=== PATIENT | female | born 1945 | race Caucasian/White ===

== ENCOUNTER → 2018-02-16 | Outpatient (CLI) | payer MEDICARE, OTHER | END | disposition home or self-care (01) | LOC: PCVCCLINIC 15:51 | PROVIDERS: ATTEND Internal Medicine Cardiovascular Disease | DX: I10 Essential (primary) hypertension (principal); R06.00 Dyspnea, unspecified; R07.9 Chest pain, unspecified; E78.00 Pure hypercholesterolemia, unspecified; J45.909 Unspecified asthma, uncomplicated | CPT/HCPCS: 93005; G0463 ==

== ENCOUNTER → 2018-03-06 | Outpatient (CLI) | payer MEDICARE, OTHER ==
[~2018-03-06] MED LIST: REGADENOSON 0.4 MG/5 ML DISP.SYRIN. IV ONE
--- NOTE | 2018-03-06 15:19 | PCVCIMAG ---
APPROVED REPORT Study performed: 03/06/2018 11:30:20 EXAM: Comprehensive 2D, Doppler, and color-flow Echocardiogram Patient Location: Echo lab Status: routine BSA: 1.71 HR: 60 bpmBP: 128/70 mmHg Rhythm: NSR Other Information Study Quality: Good Risk Factors: Cardiac Risk Factors: HTN, Hyperlipidemia Indications Dyspnea Chest Pain 2D Dimensions IVSd: 6.30 (7-11mm)LVOT Diam: 19.00 (18-24mm) LVDd: 44.27 mm PWd: 8.97 (7-11mm)Ascending Ao: 24.96 (22-36mm) LVDs: 30.90 (25-40mm) Left Atrium: 29.60 (27-40mm) Aortic Root: 25.52 mm LV Single Plane 4CH: 50.00 % LV Single Plane 2CH: 49.91 % Biplane EF: 45.5 % Volumes Left Atrial Volume (Systole) Single Plane 4CH: 41.84 mLSingle Plane 2CH: 34.41 mL LA ESV Index: 25.00 mL/m2 Aortic Valve AoV Peak Roberto.: 0.99 m/s AO Peak Gr.: 3.92 mmHgLVOT Max P.54 mmHg LVOT Max V: 0.80 m/s SHANEKA Vmax: 2.23 cm2 Mitral Valve E/A Ratio: 0.7 MV Decel. Time: 230.46 ms MV E Max Roberto.: 0.71 m/s MV A Roberto.: 0.97 m/s MV PHT: 66.83 ms IVRT: 62.28 ms TDI E/Lateral E': 10.14E/Medial E': 11.83 Medial E' Roberto.: 0.06 m/s Lateral E' Roberto.: 0.07 m/s Pulmonary Valve PV Peak Roberto.: 0.80 m/sPV Peak Gr.: 2.55 mmHg Pulmonary Vein P Vein S: 0.42 m/sP Vein A: 0.32 m/s P Vein D: 0.30 m/sP Vein A Dur.: 90.0 msec P Vein S/D Ratio: 1.40 Tricuspid Valve TR Peak Roberto.: 2.08 m/sRAP Estimate: 7.00 mmHg TR Peak Gr.: 17.28 mmHg PA Pressure: 24.00 mmHg Left Ventricle The left ventricle is normal size. There is normal LV segmental wall motion. There is normal left ventricular wall thickness. Left ventricular systolic function is normal. The left ventricular ejection fraction is within the normal range. LVEF is 55%. Grade I - abnormal relaxation pattern. Right Ventricle The right ventricle is normal size. The right ventricular systolic function is normal. Atria The left atrium size is normal. The right atrium size is normal. Aortic Valve The aortic valve is normal in structure. No aortic regurgitation is present. There is no aortic valvular stenosis. Mitral Valve The mitral valve is normal in structure. Mild mitral regurgitation. No evidence of mitral valve stenosis. Tricuspid Valve The tricuspid valve is normal in structure. Trace tricuspid regurgitation. Pulmonary artery pressure is 24 mmHg. Pulmonic Valve The pulmonary valve is normal in structure. There is no pulmonic valvular regurgitation. Great Vessels The aortic root is normal in size. IVC is normal in size and collapses >50% with inspiration. Pericardium There is no pericardial effusion. <Conclusion> The left ventricle is normal size. There is normal left ventricular wall thickness. Left ventricular systolic function is normal. Grade I - abnormal relaxation pattern. The right ventricle is normal size. The left atrium size is normal. The aortic valve is normal in structure. Mild mitral regurgitation. Trace tricuspid regurgitation. Pulmonary artery pressure is 24 mmHg.
--- NOTE | 2018-03-06 15:26 | PCVCIMAG ---
APPROVED REPORT Imaging Protocol: Rest Tc-99m/Stress Tc-99m 1 day Study performed: 03/06/2018 13:04:47 Indication: Chest pain, Dyspnea Patient Location: Out-Patient Stress Nurse: Consuelo Merino RN, Nola Mir RN NM Tech:Akshat Ireland NMTCB Ht: 5 ft 4 in Wt: 146 lbs BSA: 1.71 m2 HR: 91 bpm BP: 134/70 mmHg BMI: 25.05 Rhythm: Sinus Rhythm Medical History Medical History: Age, Hyperlipidemia, HTN Medications: Norvasc, ProAir, Estradiol, Symbicort Allergies: No known drug allergies Pretest Chest Pain Characteristics: No chest pain Exercise History: Physically active Resting Data Rest SPECT myocardial perfusion imaging was performed in supine position 45 minutes following the intravenous injection of 11.9 mCi of Tc-99m Sestamibi. Time of rest injection: 1215 Date: 03/06/2018 Administration Route: IV Administration Site: Right Hand Pharmacologic Stress Pharmacologic stress test was performed by injecting Regadenoson 0.4 mg IV push over 10-15 seconds immediately followed by the intravenous injection of 33.8 mCi of Tc-99m Cardiolite. Time of stress injection: 1400 Date: 03/06/2018 Administration Route: IV Administration Site: Right Hand Gated Stress SPECT was performed 45 minutes after stress injection. The images were gated to evaluate regional wall motion and calculate left ventricular ejection fraction. Stress Test Details Stress Test: Pharmacologic stress was paired with low level exercise. Reason for pharmacologic stress test: Unable to achieve HR with Ramírez Protocol. HRMax Heart Rate (APMHR): 148 bpm Resting HR: 91 bpmTarget HR (85% APMHR): 125 bpm Max HR Achieved: 120 bpm % of APMHR: 81 Recovery HR: 86 bpm BP Resting BP: 134/70 mmHg Max BP: 136/61 mmHg Recovery BP: 114/57 mmHg ECG Resting ECG: Sinus Rhythm Stress ECG: Sinus Tachycardia ST Change: Non-ischemic Arrhythmia: PVC's Recovery ECG: Sinus Rhythm Clinical Reason for Termination: Completed protocol Stress Symptoms: Fatigue Symptoms resolved during recovery. Study Quality Study: Good Artifact: Mild Breast artifact Study Data Post stress, the left ventricular ejection was 66%.. SSS: 0 SRS: 0 SDS: 0 TID = 0.86. Perfusion There is a medium area of mildly reduced uptake in the apical segment of the anterior wall which is seen on the stress images as well as the resting images. This area thickens and moves normally and is most consistent with attenuation artifact. Wall Motion Normal left ventricular wall motion. Nuclear Conclusion ECG Findings: negative for ischemia Clinical Findings: non-diagnostic Nuclear Findings: negative for ischemia Exercise Capacity: not assessed Left Ventricular Function: normal Risk Study: low This study is of low probability for inducible ischemia or prior infarct. Normal global and segmental LV systolic function. Artifact: Mild Breast artifact
== END | disposition home or self-care (01) ==
LOC: PCVCIMAG 10:49
PROVIDERS: ATTEND Internal Medicine Cardiovascular Disease
DX: I34.0 Nonrheumatic mitral (valve) insufficiency (principal); R06.09 Other forms of dyspnea; R00.0 Tachycardia, unspecified; E78.00 Pure hypercholesterolemia, unspecified; J45.909 Unspecified asthma, uncomplicated; I10 Essential (primary) hypertension; E78.5 Hyperlipidemia, unspecified; Z90.49 Acquired absence of other specified parts of digestive tract
CPT/HCPCS: 78452; 93017; 93306; A9500; G0463; J2785